=== PATIENT | female | born 2000 | race Caucasian/White ===

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

== ENCOUNTER 2023-09-27 17:44 | Inpatient (IN) | payer OTHER ==
[2023-09-27 18:25] VITALS: BMI 30.4
[2023-09-27] MEDS ORDERED: MISOPROSTOL 200 MCG TABLET ONE (18:35)
[2023-09-27] MEDS: OXYTOCIN 20 UNITS in 0.9% NS 20 UNIT/1,000 ML INFUS.BAG IV SCH (18:35)
[2023-09-27 18:42] LABS: BASO % 0.2 % (0-2.0); EOS % 0.6 % (0-4.5); HEMATOCRIT 34.9 % (32.4-45.2); LYMPH % 18.9 % (8-40); MCH 29.3 pg (25.7-33.7); MCHC 34.4 g/dl (32.0-36.0); MEAN CELL VOLUME 85.2 fl (80-96); MEAN PLT VOLUME 7.6 fl (7.5-11.1); MONO % 7.3 % (3.8-10.2); PLATELET COUNT 405 10^3/uL (134-434); RBC 4.09 M/mm3 (3.60-5.2); RDW 13.5 % (11.6-15.6); WHITE BLOOD COUNT 12.1 K/mm3 (4.0-10.0)
[2023-09-27] MEDS: MISOPROSTOL 200 MCG TABLET NR ONE (18:55)
[2023-09-27] MEDS ORDERED: BISACODYL 10 MG SUPP.RECT RC PRN (19:04)
[2023-09-27] MEDS ORDERED: BENZOCAINE 28 GM HEMORRHOIDAL OINTMENT TP PRN (19:04)
[2023-09-27] MEDS ORDERED: WITCH HAZEL 50% (TUCKS) 40 PAD/JAR PAD TP PRN (19:04)
[2023-09-27] MEDS ORDERED: ACETAMINOPHEN 325 MG TABLET (FP) PO PRN (19:04)
[2023-09-27] MEDS ORDERED: BENZOCAINE 20% 57 GM BOTTLE TP PRN (19:04)
[2023-09-27 19:09] LABS: POTASSIUM 4.3 mmol/L (3.5-5.1)
[2023-09-27 19:10] LABS: CALCIUM 9.4 mg/dL (8.5-10.1)
[2023-09-27 19:11] LABS: BLOOD UREA NITROGEN 9.2 mg/dL (7-18)
[2023-09-27 19:14] LABS: CREATININE 0.6 mg/dL (0.55-1.3)
[2023-09-27] MEDS ORDERED: IBUPROFEN 600 MG TABLET (FP) PO ONE (19:14)
[2023-09-27] MEDS: IBUPROFEN 600 MG TABLET (FP) PO PRN (19:20)
[2023-09-27 20:05] LABS: HIV INTERPRETATION NEGATIVE (NEGATIVE)
[2023-09-27 21:25] LABS: INR 1.02 (0.83-1.09); PROTHROMBIN TIME (PATIENT) 11.8 SEC (9.7-13.0)
[2023-09-27 21:27] LABS: ACTIVATED PTT 27.5 SECONDS (25.2-36.5)
[2023-09-28 02:54] LABS: COCAINE, UR NEGATIVE (NEGATIVE); METHADONE, UR NEGATIVE (NEGATIVE); OPIATES, URI NEGATIVE (NEGATIVE); PHENCYCLIDINE,URINE NEGATIVE (NEGATIVE); URINE AMPHETAMINES NEGATIVE (NEGATIVE); URINE BARBITURATES NEGATIVE (NEGATIVE); URINE BENZODIAZEPINES NEGATIVE (NEGATIVE)
[2023-09-28 07:40] LABS: BASO % 0.2 % (0-2.0); EOS % 0.8 % (0-4.5); HEMATOCRIT 24.4 % (32.4-45.2); HEMOGLOBIN 8.4 GM/dL (10.7-15.3); MCH 29.2 pg (25.7-33.7); MCHC 34.3 g/dl (32.0-36.0); MEAN CELL VOLUME 85.2 fl (80-96); MEAN PLT VOLUME 7.7 fl (7.5-11.1); MONO % 7.8 % (3.8-10.2); NEUT % 73.2 % (42.8-82.8); PLATELET COUNT 292 10^3/uL (134-434); RBC 2.86 M/mm3 (3.60-5.2); RDW 13.3 % (11.6-15.6); WHITE BLOOD COUNT 12.4 K/mm3 (4.0-10.0)
[2023-09-28] MEDS ORDERED: SENNOSIDES/DOCUSATE COMBO (SENNA PLUS) TABLET (UD) PO PRN (22:00)
[2023-09-29 10:57] VITALS: BP 96/53; PULSE 71; RESP 17; TEMP 98
== END 2023-09-29 13:10 | disposition home or self-care (01) | DRG 560 ==
LOC: JDEL 17:44 → JLDR 17:45 → J3W 22:53
PROVIDERS: ADMIT Student in an Organized Health Care Education/Training Program; ATTEND Student in an Organized Health Care Education/Training Program
PROC: 10E0XZZ Delivery of Products of Conception, External Approach (ICD-10-PCS; principal; 2023-09-27)
PROC: 0UQMXZZ Repair Vulva, External Approach (ICD-10-PCS; 2023-09-27)
PROC: 0W8NXZZ Division of Female Perineum, External Approach (ICD-10-PCS; 2023-09-27)
DX: O71.82 Other specified trauma to perineum and vulva (principal); Z3A.37 37 weeks gestation of pregnancy; Z37.0 Single live birth
CPT/HCPCS: 36415; 80048; 80307; 85025; 85610; 85730; 86780; 86850; 86900; 86901; 87340; 87389